=== PATIENT | female | born 1990 | race Caucasian/White ===

== ENCOUNTER 2017-01-19 17:29 | Emergency (ER) | payer MEDICAID ==
[~2017-01-19 17:29] MED LIST: ACHD5005 PO; AMOX875T2 PO; CLC500CT PO; CYCL10TA9 PO; DCS100C PO; DICL50TA4 PO; FRS325T PO; IBP600T1 PO; LABE300T PO; LEVO500T69 PO; NAPR-243 PO; NAPR250T PO; NF-SKEL800 PO; PHEN-639 PO; PRED20TA PO; PREN1TAB14 PO; SULF1TAB35 PO; TRAM50TA2 PO
--- OUTSIDE RECORDS SUMMARY | 2017-01-20 19:35 | XMS REPORT ---
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 Name Role Phone ROGERIO MALHOTRA CP Unavailable Allergies No Known Allergies Problems Problem Type Condition ICD-9 Code Onset Dates Condition Status Assessment Dental examination V72.2 Active Problem Insufficient care V23.7 Active Problem Screening for iron deficiency anemia V78.0 Active Problem Previous delivery, unspecified as to episode of care or not applicable 654.20 Active Problem Infections of genitourinary tract in , unspecified as to episode of care 646.60 Active Problem Lumbago 724.2 Active Problem Screening for diabetes mellitus V77.1 Active Problem DTAP TEST V06.1 Active Medications No Known Medications Procedures Procedure Coding System Code Date INTRAORL-PERIAPICAL 1 FILM 73776 CPT-4 D0220 January 30, 2015 PANORAMIC FILM SEE ALSO CODE 52935 CPT-4 D0330 January 30, 2015 LTD ORAL EVALUATION - PROBLEM FOCUS CPT-4 D0140 January 30, 2015 Results No Known Results Summary Purpose eClinicalWorks Submission
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
== END 2017-01-19 18:20 | disposition left against medical advice (07) ==
LOC: EDUNIT# 17:29 → ER 17:31
DX: O99.89 Other specified diseases and conditions complicating pregnancy, childbirth and the puerperium (principal); R51 Headache; Z53.21 Procedure and treatment not carried out due to patient leaving prior to being seen by health care provider; Z3A.00 Weeks of gestation of pregnancy not specified

== ENCOUNTER → 2017-01-31 | Outpatient (CLI) | payer MEDICAID ==
--- NOTE | 2017-01-31 13:46 | Diagnostic Imaging Report ---
INDICATION: Evaluate size and dates. TECHNIQUE: Multiple real-time grayscale images were obtained over the gravid uterus. COMPARISON: None. FINDINGS: Single live intrauterine at 18 weeks 4 days by today's sonographic measurements. EDC is 06/30/2017. presentation is cephalic. Placenta is located posteriorly with no placenta previa. heart rate measures 156 beats per minute. Good visualization of the kidneys, bladder, stomach, brain, four-chamber heart, three-vessel cord and insertion, extremities, and spine. Biometrical measurements are as follows: Biparietal 4.1 cm, age 18 weeks 4 days. Head circumference 15.2 cm, age 18 weeks 2 days. Abdominal circumference 13.3 cm, age 18 weeks 6 days. Femur length 2.7 cm, age 18 weeks 3 days. Sonographic estimate age: 18 weeks 4 days. Sonographic estimated date of delivery: 06/30/17. Estimated Weight: 244 gm (+/- 36 gm). LMP percentile: 2%. heart rate: 156 beats per minute. number: 1 of 1. IMPRESSION: Single live intrauterine at 18 weeks 4 days by sonographic measurements. Normal anatomical survey. Dictated by: Dictated on workstation # [id number]
== END ==
LOC: RAD 12:22
PROVIDERS: ATTEND Family Medicine
DX: Z36 Encounter for antenatal screening of mother (principal); Z3A.18 18 weeks gestation of pregnancy
CPT/HCPCS: 76805

== ENCOUNTER → 2017-05-09 | Outpatient (CLI) | payer MEDICAID ==
[2017-05-09 12:20] LABS: MEAN PLATELET VOLUME 9.6 FL (7.4-10.4); RED BLOOD COUNT 3.36 10^6/uL (4.35-5.85); WHITE BLOOD COUNT 12.2 10^3/uL (4.3-11.0)
[2017-05-09 12:37] LABS: ALANINE AMINOTRANSFERASE < 6 U/L (0-55); ALBUMIN 3.4 GM/DL (3.2-4.5); ANION GAP 10 MMOL/L (5-14); ASPARTATE AMINO TRANSFERASE 10 U/L (5-34); BILIRUBIN,TOTAL 0.2 MG/DL (0.1-1.0); BLOOD UREA NITROGEN 5 MG/DL (7-18); BUN/CREATININE RATIO 8; CALCIUM 9.7 MG/DL (8.5-10.1); CARBON DIOXIDE 19 MMOL/L (21-32); CHLORIDE 109 MMOL/L (98-107); CREATININE SERUM 0.66 MG/DL (0.60-1.30); GFR ESTIMATED > 60; GLUCOSE 95 MG/DL (70-105); LACTATE DEHYDROGENASE 145 U/L (125-220); POTASSIUM 3.3 MMOL/L (3.6-5.0); SODIUM 138 MMOL/L (135-145); TOTAL PROTEIN 6.1 GM/DL (6.4-8.2); URIC ACID 4.5 MG/DL (2.6-7.2)
[2017-05-09 13:34] LABS: PROTEIN/CREATININE RATIO 0.18
== END ==
LOC: LAB 12:02
PROVIDERS: ATTEND Family Medicine
DX: O13.3 Gestational [pregnancy-induced] hypertension without significant proteinuria, third trimester (principal); Z3A.00 Weeks of gestation of pregnancy not specified
CPT/HCPCS: 36415; 80053; 82570; 83615; 84156; 84550; 85027

== ENCOUNTER 2017-06-10 10:00 | Inpatient (IN) | payer MEDICAID ==
[~2017-06-10] VITALS: Ht 167.6 cm; Wt 95.3 kg
[2017-06-10] MEDS ORDERED: RANI-515 PO (10:45)
[2017-06-10] MEDS ORDERED: METOCLOPRAMIDE INJ 10 MG/2 ML (REGLAN) IV ONE (11:15)
[2017-06-10] MEDS ORDERED: CITRIC ACID/SOB CIT (BICITRA) 30 ML UDC PO ONE (11:15)
[2017-06-10] MEDS ORDERED: FAMOTIDINE 20MG/2ML IV (PEPCID) IV ONE (11:15)
[2017-06-10] MEDS ORDERED: INFLUENZA TRIvalent 2017-2018 0.5 ML/45 MCG SYR IM ONE (11:30)
[2017-06-10 11:36] LABS: BASOPHILS % (AUTO) 0 % (0-10); EOSINOPHILS # (AUTO) 0.1 10^3/uL (0.0-0.3); EOSINOPHILS % (AUTO) 1 % (0-10); LYMPHOCYTES # (AUTO) 1.6 X 10^3 (1.0-4.0); LYMPHOCYTES % (AUTO) 16 % (12-44); MEAN CORPUSCULAR HEMOGLOBIN 27 PG (25-34); MEAN CORPUSCULAR HGB CONC 32 G/DL (32-36); MEAN CORPUSCULAR VOLUME 84 FL (80-99); MEAN PLATELET VOLUME 10.1 FL (7.4-10.4); MONOCYTES # (AUTO) 0.5 X 10^3 (0.0-1.0); MONOCYTES % (AUTO) 6 % (0-12); NEUTROPHILS # (AUTO) 7.5 X 10^3 (1.8-7.8); NEUTROPHILS % (AUTO) 76 % (42-75); PLATELET COUNT 216 10^3/uL (130-400); RED BLOOD COUNT 3.68 10^6/uL (4.35-5.85); RED CELL DISTRIBUTION WIDTH 15.8 % (10.0-14.5); WHITE BLOOD COUNT 9.8 10^3/uL (4.3-11.0)
[2017-06-10] MEDS: LACTATED RINGERS 1,000 ML IV PRN ×2 (11:37→12:23)
[2017-06-10] MEDS ORDERED: KETAMINE HCL 100 MG/ML 5 ML VIAL ONE (11:58)
[2017-06-10] MEDS ORDERED: fentaNYL INJECTION 100 MCG/2 ML AMP ONE (11:58)
--- NOTE | 2017-06-10 12:07 | History & Physical-OB ---
OB - Chief Complaint & HPI Date/Time Date of Admission: Date of Admission: Jun 10, 2017 at 11:07 am Time Seen by Provider: 12:04 Chief Complaint/History OB-Reason for Admission/Chief: Section Hx : 5 Hx Para: 3 Expected Date of Delivery: Jun 30, 2017 Gestational Age in Weeks: 37 Gestational Age in Days: 1 Indication for : desires repeat Admission Nurse Assessment Rev: Yes History of Labs A pos Anitbody neg RI RPR NR HBsAg NR HIV NR GC neg GBS unknown Allergies and Home Medications Allergies Coded Allergies: No Known Drug Allergies (Unverified , 04/29/13) Home Medications Ranitidine HCl 150 Mg Tablet, 150 MG PO DAILY, (Reported) OB - History Hx of Present Care: Yes Ultrasounds: Normal mid trimester US Obstetrical Complications: Gestational Hypertension Medical Complications: None Obstetrical History Hx : 5 Hx Para: 3 Hx Termination: No Hx Total # of Abortions (Spona: 1 Hx Multiple Gestation: No Hx Stillbirth: No Hx Complication: No Hx Induced Hypertens: No Hx Maternal Gestational Diabet: No Delivery History Hx Dystocia: No Hx Large For Gestational Age I: No Hx Small for Gestational Age I: No Hx Section: No Hx Vaginal Delivery Post C-Sec: No Hx Blood Disorders: No Adverse Rxn to Tranfusion: No Patient Past Medical History n/a Social History/Family History HIV/AIDS: No Recent Infectious Disease Expo: No Sexually Transmitted Disease: No Alcohol Use: Denies Use Recreational Drug Use: No Immunizations Hepatitis A: No Hepatitis B: No Tetanus Booster (TDap): Unknown Date of Influenza Vaccine: May 28, 2015 OB - Admission Exam Physical Exam HEENT: NCAT Heart: Rhythm Normal Lungs: Clear Abdomen: Gravid Extremities: Normal Reflexes: Normal Membranes: Ruptured Heart Rate: 130's Accelerations: Accelerations Present Decelerations: No Decelerations Short Term Variability: Present Broom Maker Variability: Average (6-25) Contractions on Admission: 6-10 Minutes Apart Intensity: Mild Labs Laboratory Tests Test 06/10/17 11:25 Range/Units White Blood Count 9.8 4.3-11.0 10^3/uL Red Blood Count 3.68 L 4.35-5.85 10^6/uL Hemoglobin 10.0 L 11.5-16.0 G/DL Hematocrit 31 L 35-52 % Mean Corpuscular Volume 84 80-99 FL Mean Corpuscular Hemoglobin 27 25-34 PG Mean Corpuscular Hemoglobin Concent 32 32-36 G/DL Red Cell Distribution Width 15.8 H 10.0-14.5 % Platelet Count 216 130-400 10^3/uL Mean Platelet Volume 10.1 7.4-10.4 FL Neutrophils (%) (Auto) 76 H 42-75 % Lymphocytes (%) (Auto) 16 12-44 % Monocytes (%) (Auto) 6 0-12 % Eosinophils (%) (Auto) 1 0-10 % Basophils (%) (Auto) 0 0-10 % Neutrophils # (Auto) 7.5 1.8-7.8 X 10^3 Lymphocytes # (Auto) 1.6 1.0-4.0 X 10^3 Monocytes # (Auto) 0.5 0.0-1.0 X 10^3 Eosinophils # (Auto) 0.1 0.0-0.3 10^3/uL Basophils # (Auto) 0.0 0.0-0.1 10^3/uL OB - Assessment/Plan/Diagnosis Assessment Assessment: section Plan Plan: Section Other Plan RLTCS with RRS Discharge Diagnosis Diagnosis: 27 G5 P 3 @ 37 weeks SROM GBS unknown GHASSAN DOAN DO Jun 10, 2017 12:07 pm
[2017-06-10] MEDS ORDERED: ceFAZolin 2 GM/50 ML NS 50 ML IV NR (12:15)
[2017-06-10] MEDS ORDERED: OXYTOCIN/NORMAL SALINE 500 ML IV ONE ×2 (12:27→13:31)
[2017-06-10] MEDS ORDERED: ONDANSETRON 4 MG/2 ML (SDV) Z0FRAN ONE (12:27)
[2017-06-10] MEDS ORDERED: KETOROLAC 30 MG/ML VIAL ONE (12:27)
--- OUTSIDE RECORDS SUMMARY | 2017-06-10 12:41 | XMS REPORT ---
Author Author YUMIKO CRAFT Organization [facility] Address [address] [place] [address] Care Team Providers Care Patient Liaison Name Role Phone YUMIKO CRAFT Unavailable PROBLEMS Unknown Problems ALLERGIES No Known Allergies SOCIAL HISTORY Never Assessed PLAN OF CARE Activity Details Follow Up prn Reason: VITAL SIGNS Height 66 in 2016-08-30 Weight 186.2 lbs 2016-08-30 Temperature 98.0 degrees Fahrenheit 2016-08-30 Heart Rate 96 bpm 2016-08-30 Respiratory Rate 22 2016-08-30 BMI 30.05 kg/m2 2016-08-30 Blood pressure systolic 98 mmHg 2016-08-30 Blood pressure diastolic 72 mmHg 2016-08-30 MEDICATIONS Medication Instructions Dosage Frequency Start Date End Date Duration Status Augmentin 875-125 MG Orally every 12 hrs 1 tablet 12h Aug,Aug 10 day(s) Active RESULTS No Results PROCEDURES Procedure Date Ordered Result Body Site DEPO MEDROL 80 MG/ML Aug 30, 2016 THER/PROPH/DIAG INJ, SC/IM Aug 30, 2016 DEXAMETHASONE 4MG/ML (PER 1 MG) Aug 30, 2016 IMMUNIZATIONS Vaccine Route Administration Date Status DEXAMETHASONE 4MG/ML (PER 1 MG) IM Intramuscular Aug 30, 2016 Administered DEPO MEDROL 80 MG/ML IM Intramuscular Aug 30, 2016 Administered MEDICAL (GENERAL) HISTORY Type Description Date Surgical History section x2 Hospitalization History Childbirth x3
[2017-06-10] MEDS ORDERED: CATHETER FLUSH 10 ML SYR IV PRN (13:00)
[2017-06-10] MEDS ORDERED: OXYTOCIN/NORMAL SALINE 500 ML IV SCH (13:44)
[2017-06-10] MEDS ORDERED: MEASLES,MUMPS,RUBELLA 1 EA INJ SC SCH (13:45)
[2017-06-10] MEDS ORDERED: TETANUS,DIPTH,PERTUSS P/F (BOOSTRIX) 0.5 ML VIAL IM SCH (13:45)
[2017-06-10] MEDS ORDERED: HYDROmorphone (DILAUDID) 2 MG/ML VIAL IVP PRN (13:45)
[2017-06-10] MEDS ORDERED: ONDANSETRON 4 MG/2 ML (SDV) Z0FRAN IVP PRN (13:45)
[2017-06-10] MEDS ORDERED: IBUPROFEN 600 MG (MOTRIN) TAB PO SCH (13:45)
[2017-06-10 15:15] VITALS: BP 131/87
[2017-06-10 17:00] VITALS: BP 121/75
[2017-06-10] MEDS: HYDROcodone/APAP 5 MG/325 MG (LORTAB) TAB PO PRN ×2 (18:15→23:20)
[2017-06-10 20:29] VITALS: BP 114/73
[2017-06-10] MEDS: KETOROLAC 30 MG/ML VIAL IVP SCH (20:29)
[2017-06-10 21:21] LABS: BASOPHILS % (AUTO) 0 % (0-10); EOSINOPHILS % (AUTO) 0 % (0-10); LYMPHOCYTES # (AUTO) 1.2 X 10^3 (1.0-4.0); LYMPHOCYTES % (AUTO) 9 % (12-44); MEAN CORPUSCULAR HEMOGLOBIN 27 PG (25-34); MEAN CORPUSCULAR HGB CONC 32 G/DL (32-36); MEAN CORPUSCULAR VOLUME 85 FL (80-99); MEAN PLATELET VOLUME 10.1 FL (7.4-10.4); MONOCYTES # (AUTO) 0.5 X 10^3 (0.0-1.0); MONOCYTES % (AUTO) 4 % (0-12); NEUTROPHILS # (AUTO) 12.2 X 10^3 (1.8-7.8); NEUTROPHILS % (AUTO) 87 % (42-75); PLATELET COUNT 201 10^3/uL (130-400); RED BLOOD COUNT 2.94 10^6/uL (4.35-5.85); RED CELL DISTRIBUTION WIDTH 15.6 % (10.0-14.5)
[2017-06-10 22:23] VITALS: BP 106/62
[2017-06-10] MEDS: DOCUSATE SODIUM 100 MG (COLACE) CAP PO SCH (23:19)
[2017-06-10 23:58] VITALS: BP 82/44
--- NOTE | 2017-06-10 23:58 | OPERATIVE REPORT ---
DATE OF SERVICE: PREOPERATIVE DIAGNOSES: 1. A 27-year-old female at 37 weeks gestation. 2. Spontaneous rupture of membranes. 3. Previous section. 4. Family history of ovarian cancer. POSTOPERATIVE DIAGNOSES: 1. A 27-year-old female at 37 weeks gestation. 2. Spontaneous rupture of membranes. 3. Previous section. 4. Family history of ovarian cancer. PROCEDURE: Repeat low transverse section with risk reducing salpingectomy. SURGEON: Joe Alejandra DO OVEN ATTENDANT: Suze Dick MS-3 ANESTHESIA: Spinal. EBL: 800 mL. URINE OUTPUT: 145 mL clear at the end of the procedure. FLUIDS: 2040 mL lactated Ringer solution. FINDINGS: This is a live male infant weighing 7 pounds 1 ounce, Apgars of 8 and 9. Grossly normal appearing uterus, bilateral fallopian tubes and ovaries. SPECIMEN SENT: Placenta. INDICATIONS FOR PROCEDURE: This is a 27-year-old female who was previously consulted in my office to proceed with a repeat . I had discussed with the patient previously in her April appointment about proceeding with risk reducing salpingectomy, both due to her family history of ovarian cancer as well as due to her requesting for permanent sterilization. The procedure itself was discussed with the patient in detail including risk of bleeding, infection, damage to any surrounding structures including but not limited to bowel, bladder, ureter kidneys, possible removal of ovary, risk from anesthesia, blood transfusion and even . After everything was discussed with the patient in detail, consent was obtained in the preoperative area. OPERATIVE REPORT IN DETAIL: Once in the operating room, spinal analgesic was found to be adequate, placed in the supine position with leftward tilt, prepped and draped in normal sterile fashion. A Pfannenstiel skin incision was made through the previously existing scar using the knife, after anesthesia was tested and timeout was performed. This incision was carried down to the underlying fascia using Bovie cautery. Fascial incision was extended laterally using Bovie cautery. Superior aspect of the fascial incision was then grasped with Dave clamps, tented upward and dissected off the underlying rectus muscles. The inferior aspect of the fascial incision was then grasped with Dave clamps, tented upward and dissected off the underlying rectus muscles. Rectus muscles were dissected down the midline using Dorantes scissors, which exposed the peritoneum which was entered bluntly and this incision extended using blunt traction. The Avni ring retractor was placed within the peritoneal incision, which offers excellent lateral side wall retraction. I then identified the lower uterine segment, which was found to be thinned out and make a low-transverse incision to the vesicouterine peritoneum using a knife and bluntly dissected bladder flap off of the lower uterine segment. I then proceeded with my myotomy until membranes were visualized, at which point, I extended the uterine incision laterally and superiorly using bandage scissors. Amniotomy through the incision was then noted and clear fluid was noted at this time. The was found in the vertex presentation. With gentle fundal pressure, the 's head was delivered through the incision where it was bulb suctioned both nares and oropharynx. There was a nuchal cord reduced x1. Anterior and posterior shoulders were delivered. The infant was now then brought out to the operative field, where the cord was doubly clamped and cut, and was handed off to waiting pediatric nurses in attendance. Cord blood was collected, 3-vessel cord with intact placenta delivered spontaneously thereafter. IV Pitocin was initiated to facilitate uterine contraction and fundus becomes firmer with bimanual massage. The uterus was then exteriorized and cleared of all endometrial clots and debris. I then proceeded to close the uterine incision using 0 Vicryl suture in a running locking fashion. A second layer of imbricating 0 Monocryl was placed. Excellent hemostasis was noted. After doing so, I then proceeded with removing the fallopian tubes and create a window in the mesosalpinx, and take this distally and laterally. During this dissection process, I run into several large varicosities in the mesosalpinx, which have to be suture ligated using both 3-0 and 2-0 Vicryl suture. The tube was ligated using suture as well prior to it being ligated using cautery, after which this was performed on both sides and both sides appeared to be hemostatic. I placed the uterus back within the pelvis and copiously irrigated the pelvis using normal saline. There was no active bleeding noted from any dissection planes. I then placed Surgicel due to some slight oozing in the lower uterine segment over my planes of dissection to prevent postoperative bleeding as well. The peritoneum and rectus muscles were then reapproximated using 3-0 Vicryl suture in interrupted fashion. The fascia was reapproximated using 0 Vicryl suture in running fashion. The subcutaneous tissue was reapproximated using 3-0 plain in interrupted subcutaneous stitch and the skin reapproximated using 4-0 Monocryl running subcuticular. Dermabond was applied to the incision and sterile dressing with adhesive wide tape, and pressure was applied to this as well using abdominal binder. The patient tolerated the procedure well and sent to recovery area in stable condition. Lap and sponge counts correct at the end of the procedure. Instrument counts correct as well. A 2 grams of Ancef was given preoperatively for infection prophylaxis. Job ID: [id number] DocumentID: [id number] Dictated Date: 06/10/2017 13:52:34 Forgeman Helper Date: 06/10/2017 23:29:35 Dictated By: JOE ALEJANDRA DO
[2017-06-11] VITALS (21 sets, daily range): BP systolic 71–144; BP diastolic 46–89
[2017-06-11] MEDS ORDERED: NS IV 500 ML 500 ML IV SCH (00:05)
[2017-06-11] MEDS ORDERED: diphenhydrAMINE 50 MG/ML INJ (BENADRYL) IVP PRN (00:15)
[2017-06-11] MEDS: CATHETER FLUSH 10 ML SYR IV SCH ×3 (00:26→06:22)
[2017-06-11] MEDS: KETOROLAC 30 MG/ML VIAL IVP SCH ×2 (03:20→09:39)
[2017-06-11] MEDS: SIMETHICONE 80 MG (MYLICON) CHEW PO PRN ×2 (06:25→15:50)
[2017-06-11] MEDS: HYDROcodone/APAP 5 MG/325 MG (LORTAB) TAB PO PRN ×3 (06:41→21:00)
[2017-06-11 08:09] LABS: BASOPHILS % (AUTO) 0 % (0-10); EOSINOPHILS # (AUTO) 0.1 10^3/uL (0.0-0.3); EOSINOPHILS % (AUTO) 0 % (0-10); LYMPHOCYTES # (AUTO) 2.4 X 10^3 (1.0-4.0); LYMPHOCYTES % (AUTO) 17 % (12-44); MEAN CORPUSCULAR HEMOGLOBIN 28 PG (25-34); MEAN CORPUSCULAR HGB CONC 33 G/DL (32-36); MEAN CORPUSCULAR VOLUME 84 FL (80-99); MEAN PLATELET VOLUME 9.6 FL (7.4-10.4); MONOCYTES % (AUTO) 7 % (0-12); NEUTROPHILS # (AUTO) 10.2 X 10^3 (1.8-7.8); NEUTROPHILS % (AUTO) 75 % (42-75); PLATELET COUNT 168 10^3/uL (130-400); RED BLOOD COUNT 3.07 10^6/uL (4.35-5.85); RED CELL DISTRIBUTION WIDTH 15.3 % (10.0-14.5); WHITE BLOOD COUNT 13.6 10^3/uL (4.3-11.0)
--- NOTE | 2017-06-11 08:43 | Progress Note-Standard ---
Standard Progress Note Progress Notes/Assess & Plan Date Seen by Provider: Jun 11, 2017 Time Seen by Provider: 08:30 Progress/Assessment & Plan Patient doing well POD RLTCS with b/l salpingectomy. Patient was diaphoretic and weak last night and PO hgb noted to be 7, so due to symptomatic anemia 2 uPRBC ordered and given last night. This morning the patient reports feeling well but has only complaint of ruq pain that radiates to her right shoulder. Lochia light, pain very well controlled, tolerating regular diet. Vital Sign - Last 24 Hours 06/10/17 06/10/17 06/10/17 06/10/17 15:15 16:17 17:00 20:29 Temp 97.9 98.3 97.5 Pulse 82 69 68 Resp 18 18 18 B/P (MAP) 131/87 121/75 114/73 Pulse Ox 99 99 98 O2 Delivery Room Air Room Air Room Air Room Air 06/10/17 06/10/17 06/11/17 06/11/17 22:23 23:58 00:00 00:15 Temp 97.1 97.4 Pulse 65 90 72 68 Resp 18 18 18 18 B/P (MAP) 106/62 82/44 71/46 89/57 Pulse Ox 98 98 99 99 O2 Delivery Room Air Room Air Room Air Room Air 06/11/17 06/11/17 06/11/17 06/11/17 00:45 01:10 01:15 01:30 Temp 97.5 97.5 96.9 Pulse 77 87 94 77 Resp 18 18 18 18 B/P (MAP) 118/76 117/72 128/80 110/74 Pulse Ox 98 97 96 99 O2 Delivery Room Air Room Air Room Air Room Air 06/11/17 06/11/17 06/11/17 06/11/17 01:45 02:00 02:15 02:45 Temp 97.0 Pulse 88 88 82 83 Resp 18 18 18 18 B/P (MAP) 118/75 116/79 121/82 126/84 Pulse Ox 97 97 99 97 O2 Delivery Room Air Room Air Room Air Room Air 06/11/17 06/11/17 06/11/17 06/11/17 03:00 03:25 03:30 03:40 Temp 97.0 97.1 96.9 Pulse 78 84 78 74 Resp 18 18 18 18 B/P (MAP) 128/87 133/89 133/88 134/79 Pulse Ox 98 97 97 97 O2 Delivery Room Air Room Air Room Air Room Air 06/11/17 06/11/17 06/11/17 05:15 05:40 06:26 Temp 97.3 97.0 97.9 Pulse 78 80 88 Resp 18 18 18 B/P (MAP) 108/85 116/71 133/82 Pulse Ox 100 99 98 O2 Delivery Room Air Room Air Room Air Incision: c/d/i Laboratory Tests Test 06/10/17 11:25 06/10/17 21:05 06/11/17 07:54 Range/Units White Blood Count 9.8 14.0 H 13.6 H 4.3-11.0 10^3/uL Red Blood Count 3.68 L 2.94 L 3.07 L 4.35-5.85 10^6/uL Hemoglobin 10.0 L 7.9 #L 8.6 L 11.5-16.0 G/DL Hematocrit 31 L 25 L 26 L 35-52 % Mean Corpuscular Volume 84 85 84 80-99 FL Mean Corpuscular Hemoglobin 27 27 28 25-34 PG Mean Corpuscular Hemoglobin Concent 32 32 33 32-36 G/DL Red Cell Distribution Width 15.8 H 15.6 H 15.3 H 10.0-14.5 % Platelet Count 216 201 168 130-400 10^3/uL Mean Platelet Volume 10.1 10.1 9.6 7.4-10.4 FL Neutrophils (%) (Auto) 76 H 87 H 75 42-75 % Lymphocytes (%) (Auto) 16 9 L 17 12-44 % Monocytes (%) (Auto) 6 4 7 0-12 % Eosinophils (%) (Auto) 1 0 0 0-10 % Basophils (%) (Auto) 0 0 0 0-10 % Neutrophils # (Auto) 7.5 12.2 H 10.2 H 1.8-7.8 X 10^3 Lymphocytes # (Auto) 1.6 1.2 2.4 1.0-4.0 X 10^3 Monocytes # (Auto) 0.5 0.5 1.0 0.0-1.0 X 10^3 Eosinophils # (Auto) 0.1 0.0 0.1 0.0-0.3 10^3/uL Basophils # (Auto) 0.0 0.0 0.0 0.0-0.1 10^3/uL Diagnosis POD 1 RLTCS with b/l RRS Acute blood loss anemia s/p transfusion 2 u PRBC P: Continue PO care replace iron Anticipate dc tomorrow morning if continues to be stable GHASSAN ALEJANDRA DO Jun 11, 2017 8:43 am
[2017-06-11] MEDS ORDERED: FERROUS SULF 325 MG (IRON) TAB PO ONE (09:34)
[2017-06-11] MEDS: DOCUSATE SODIUM 100 MG (COLACE) CAP PO SCH ×2 (09:39→21:00)
[2017-06-11] MEDS: FERROUS SULF 325 MG (IRON) TAB PO SCH (09:42)
--- NOTE | 2017-06-11 15:32 | Anesthesia-Regional Post-Op ---
Regional Patient Condition Mental Status: Alert, Oriented x3 Circulation: Same as Pre-Op Headache: Absent Sensation: Full Recovery Motor Block: Absent Post Op Complications Complications None Follow Up Care/Instructions Patient Instructions None needed. Anesthesia/Patient Condition Patient is doing well, no complaints, stable vital signs, no apparent adverse anesthesia problems. No complications reported per nursing. NAUN MIRELES CRNA Jun 11, 2017 15:32
[2017-06-11] MEDS: IBUPROFEN 600 MG (MOTRIN) TAB PO SCH ×2 (15:46→21:00)
--- NOTE | 2017-06-11 21:40 | Discharge Inst-Women's Service ---
Discharge Inst-Women's Serv Depart Medication/Instructions New, Converted or Re-Newed RX: RX on Chart Consults/Follow Up Additional Follow Up: Yes Orders/Referrals Dr. Akhtar in 7-[address] Uriarte in 6 weeks Activity Activity: Activity as Tolerated Driving Instructions: No Driving for 1 Week NO SMOKING: NO SMOKING Nothing Inside Vagina: No Douching, No [place], No Tampons Diet Discharge Diet: No Restrictions Symptoms to Report to : Bleeding Excessive, Pain Increased, Fever Over 101 Degrees F, Vaginal Bleeding Increase, Questions/Concerns For Any Problems or Questions: Contact Your Physician Skin/Wound Care Infection Signs and Symptoms: Increased Redness, Foul Odor of Wound, Increased Drainage, Skin Itchy or Has a Rash, Increased Swelling, Temperature Above 101 F Operative Area Clean and Dry: Keep Incision Clean/Dry Stitches/[place]/Dermabond: Dermabond, Care of Stitches Bathing Instructions: GHASSAN Schwarz DO Jun 11, 2017 21:40
[2017-06-11] MEDS ORDERED: HYDR-3812 PO (21:41)
[2017-06-11] MEDS ORDERED: DOCU100C37 PO (21:41)
[2017-06-11] MEDS ORDERED: SIME80TA16 PO (21:41)
[2017-06-11] MEDS ORDERED: IBUP-1773 PO (21:41)
[2017-06-11] MEDS ORDERED: FERR-74 PO (21:41)
[2017-06-12 02:07] VITALS: BP 147/94
[2017-06-12] MEDS: IBUPROFEN 600 MG (MOTRIN) TAB PO SCH ×2 (02:07→08:36)
[2017-06-12] MEDS: HYDROcodone/APAP 5 MG/325 MG (LORTAB) TAB PO PRN (02:07)
[2017-06-12 07:14] LABS: BASOPHILS % (AUTO) 0 % (0-10); EOSINOPHILS # (AUTO) 0.2 10^3/uL (0.0-0.3); EOSINOPHILS % (AUTO) 2 % (0-10); LYMPHOCYTES # (AUTO) 1.8 X 10^3 (1.0-4.0); LYMPHOCYTES % (AUTO) 17 % (12-44); MEAN CORPUSCULAR HEMOGLOBIN 28 PG (25-34); MEAN CORPUSCULAR HGB CONC 32 G/DL (32-36); MEAN CORPUSCULAR VOLUME 86 FL (80-99); MEAN PLATELET VOLUME 9.7 FL (7.4-10.4); MONOCYTES # (AUTO) 0.8 X 10^3 (0.0-1.0); MONOCYTES % (AUTO) 7 % (0-12); NEUTROPHILS # (AUTO) 7.7 X 10^3 (1.8-7.8); NEUTROPHILS % (AUTO) 73 % (42-75); PLATELET COUNT 132 10^3/uL (130-400); RED BLOOD COUNT 2.57 10^6/uL (4.35-5.85); RED CELL DISTRIBUTION WIDTH 15.5 % (10.0-14.5); WHITE BLOOD COUNT 10.5 10^3/uL (4.3-11.0)
[2017-06-12 08:00] VITALS: BP 130/90
[2017-06-12] MEDS: FERROUS SULF 325 MG (IRON) TAB PO SCH (08:36)
[2017-06-12] MEDS: DOCUSATE SODIUM 100 MG (COLACE) CAP PO SCH (08:36)
--- NOTE | 2017-06-12 11:10 | Progress Note-Standard ---
Standard Progress Note Progress Notes/Assess & Plan Date Seen by Provider: Jun 12, 2017 Time Seen by Provider: 08:50 Progress/Assessment & Plan Patient doing well POD 2 RLTCS with b/l salpingectomy. She reports doing better today and awaiting discharge. Pain in RUQ has gotten better. Lochia light. Denies lightheadeness dizzyness. Tolerating regular diet. Vital Sign - Last 24 Hours 06/11/17 06/11/17 06/11/17 06/12/17 13:00 16:03 21:00 02:07 Temp 98.0 98.3 98.4 97.8 Pulse 95 108 98 99 Resp 18 20 18 20 B/P (MAP) 118/78 144/87 128/84 147/94 Pulse Ox 98 97 97 99 O2 Delivery Room Air Room Air Room Air Room Air 06/12/17 08:00 Temp 98.0 Pulse 118 Resp 18 B/P (MAP) 130/90 Incision: c/d/i Laboratory Tests Test 06/12/17 07:04 Range/Units White Blood Count 10.5 4.3-11.0 10^3/uL Red Blood Count 2.57 L 4.35-5.85 10^6/uL Hemoglobin 7.1 L 11.5-16.0 G/DL Hematocrit 22 L 35-52 % Mean Corpuscular Volume 86 80-99 FL Mean Corpuscular Hemoglobin 28 25-34 PG Mean Corpuscular Hemoglobin Concent 32 32-36 G/DL Red Cell Distribution Width 15.5 H 10.0-14.5 % Platelet Count 132 130-400 10^3/uL Mean Platelet Volume 9.7 7.4-10.4 FL Neutrophils (%) (Auto) 73 42-75 % Lymphocytes (%) (Auto) 17 12-44 % Monocytes (%) (Auto) 7 0-12 % Eosinophils (%) (Auto) 2 0-10 % Basophils (%) (Auto) 0 0-10 % Neutrophils # (Auto) 7.7 1.8-7.8 X 10^3 Lymphocytes # (Auto) 1.8 1.0-4.0 X 10^3 Monocytes # (Auto) 0.8 0.0-1.0 X 10^3 Eosinophils # (Auto) 0.2 0.0-0.3 10^3/uL Basophils # (Auto) 0.0 0.0-0.1 10^3/uL Diagnosis POD 2 RLTCS with b/l RRS Acute blood loss anemia s/p transfusion 2 u PRBC P: Continue PO care replace iron Anticipate dc today PO/PP precautions and anemia precautions reviewed GHASSAN ALEJANDRA DO Jun 12, 2017 11:10 am
[2017-06-12 12:30] VITALS: BP 140/94
== END 2017-06-12 13:20 | disposition home or self-care (01) | DRG 765 ==
LOC: WSo 10:00 → LDRP 10:00 → WSo 11:06 → LDRP 11:07
PROVIDERS: ADMIT Family Medicine; ATTEND Family Medicine
PROC: 0UT70ZZ Resection of Bilateral Fallopian Tubes, Open Approach (ICD-10-PCS; 2017-06-10)
PROC: 10D00Z1 Extraction of Products of Conception, Low, Open Approach (ICD-10-PCS; principal; 2017-06-10 12:23)
DX: O34.211 Maternal care for low transverse scar from previous cesarean delivery (principal); Z80.41 Family history of malignant neoplasm of ovary; O13.4 Gestational [pregnancy-induced] hypertension without significant proteinuria, complicating childbirth; O90.81 Anemia of the puerperium; D62 Acute posthemorrhagic anemia; Z3A.37 37 weeks gestation of pregnancy; Z37.0 Single live birth
CPT/HCPCS: 36415; 85025; 86850; 86900; 86901; 86920; 94664; 99212

== ENCOUNTER 2020-01-14 17:34 | Emergency (ER) | payer MEDICAID ==
[~2020-01-14] VITALS: Ht 165.1 cm; Wt 77.2 kg
[~2020-01-14 17:34] MED LIST changes: +DOCU100C37 PO; +FERR325T18 PO; +IBUP-1773 PO; +RANI-609 PO; +SIME80TA16 PO
[2020-01-14 17:49] VITALS: BP 130/88
--- NOTE | 2020-01-14 18:14 | ED Upper Extremity ---
General Chief Complaint: Upper Extremity Stated Complaint: L WRIST PAIN Source: patient Exam Limitations: no limitations History of Present Illness Date Seen by Provider: Jan 14, 2020 Time Seen by Provider: 18:13 Initial Comments To ER with left wrist pain after falling on outstretched arm. Onset: just prior to arrival Severity: moderate Pain/Injury Location: left wrist Method of Injury: fell Modifying Factors: Worse With Movement Allergies and Home Medications Allergies Coded Allergies: No Known Drug Allergies (Unverified , 04/29/13) Home Medications Docusate Sodium 100 Mg Capsule, 100 MG PO BID PRN for CONSTIPATION-1ST LINE Prescribed by: GHASSAN ALEJANDRA on 06/11/172140 Ferrous Sulfate 325 Mg Tablet, 325 MG PO BID Prescribed by: GHASSAN ALEJANDRA on 06/11/172140 Hydrocodone Bit/Acetaminophen 1 Each Tablet, 1-2 TAB PO Q4H PRN for PAIN- MODERATE Prescribed by: GHASSAN ALEJANDRA on 06/11/172140 Hydrocodone/Acetaminophen 1 Each Tablet, 1 EACH PO Q4-6HR PRN for PAIN-MODERATE Prescribed by: ARSH MASON on 01/14/201846 Ibuprofen 600 Mg Tablet, 600 MG PO Q6H Prescribed by: GHASSAN ALEJANDRA on 06/11/172140 Ranitidine HCl 150 Mg Tablet, 150 MG PO DAILY, (Reported) Simethicone 80 Mg Tab.chew, 80 MG PO PCHS PRN for GAS Prescribed by: GHASSAN ALEJANDRA on 06/11/172140 Patient Home Medication List Home Medication List Reviewed: Yes Review of Systems Constitutional: see HPI EENTM: see HPI Respiratory: no symptoms reported Cardiovascular: no symptoms reported Genitourinary: no symptoms reported Musculoskeletal: see HPI Skin: no symptoms reported Psychiatric/Neurological: No Symptoms Reported Past Ixgmpmr-Ggmyzm-Jengfy Hx Patient Social History Type Used: Cigarettes Recent Foreign Travel: No Contact w/Someone Who Travel: No Recent Hopitalizations: No Immunizations Up To Date Tetanus Booster (TDap): Unknown PED Vaccines UTD: Yes Date of Influenza Vaccine: May 28, 2015 Seasonal Allergies Seasonal Allergies: Yes Past Medical History Surgeries: Yes (RIGHT ARM SX) Section Respiratory: No Cardiac: No Neurological: No Reproductive Disorders: No Female Reproductive Disorders: Denies Sexually Transmitted Disease: No HIV/AIDS: No Genitourinary: No Gastrointestinal: Yes Gastroesophageal Reflux Musculoskeletal: Yes Scoliosis, Chronic Back Pain Endocrine: No HEENT: No Cancer: No Psychosocial: No Depression Integumentary: No Blood Disorders: No Adverse Reaction/Blood Tranf: No Family Medical History Hypercholesterolemia 19 FATHER Hypertension No Pertinent Family Hx Physical Exam Vital Signs Vital Signs - First Documented 01/14/20 17:49 Temp 37.0 Pulse 105 Resp 18 B/P (MAP) 130/88 (102) Pulse Ox 95 O2 Delivery Room Air Capillary Refill : Height, Weight, BMI Height: 5'6.00" Weight: 210lbs. 0.0oz. [id number]; 33.9 BMI Method:Stated General Appearance: WD/WN, no apparent distress HEENT: PERRL/EOMI, normal ENT inspection Neck: non-tender, full range of motion Respiratory: normal breath sounds, no respiratory distress, no accessory muscle use Gastrointestinal: normal bowel sounds, non tender Shoulder: normal inspection, non-tender Elbow/Forearm: normal inspection, non-tender Wrist: Yes deformity (swelling over the snuffbox), Yes limited ROM, Yes pain, Yes soft tissue tenderness Hand: normal inspection, non-tender Neurologic/Psychiatric: alert, normal mood/affect, oriented x 3 Skin: normal color, warm/dry Progress/Results/Core Measures Results/Orders My Orders Orders - ARSH MASON APRN Hydrocodone/Apap 5/325 Tablet (Lortab 5 (01/14/20 18:15) Wrist, Left, 3 Views Or More (01/14/20 18:11) Medications Given in ED Current Medications Medications Dose Ordered Sig/Miko Route Start Time Stop Time Status Last Admin Dose Admin Acetaminophen/ Hydrocodone Bitart 1 tab ONCE ONCE PO 01/14/20 18:15 01/14/20 18:16 DC 01/14/20 18:21 1 TAB Vital Signs/I&O 01/14/20 17:49 Temp 37.0 Pulse 105 Resp 18 B/P (MAP) 130/88 (102) Pulse Ox 95 O2 Delivery Room Air Departure Communication (Admissions) Placed in a sugar tong style splint using 3 inch Ortho-Glass and remains neurovascularly intact. NAME: MARIETODD MED REC#: [id number] PT STATUS: REG ER : 1990 PHYSICIAN: ARSH MASON APRN ADMIT DATE: 01/14/20/ER Draft Date of Exam:01/14/20 WRIST, LEFT, 3 VIEWS OR MORE EXAMINATION: Left wrist at 6:32 PM INDICATION: Fell Three views were obtained. There is a slightly impacted complex slightly displaced fracture of the distal radius. One of the fracture lines does interrupt the articular surface. There is also an avulsion fracture of the ulnar styloid. No other fracture or acute bony abnormality is noted. IMPRESSION: There is a complex slightly impacted fracture of the distal radius and avulsion fracture of the ulnar styloid. Dictated on workstation # [id number] Dict: 01/14/20 1846 Trans: 01/14/20 1858 [facility] [id number] Interpreted by: MOUSTAPHA EMERY MD Electronically signed by: Impression Primary Impression: Closed fracture distal radius and ulna Qualified Codes: S52.502A - Unspecified fracture of the lower end of left radius, initial encounter for closed fracture; S52.602A - Unspecified fracture of lower end of left ulna, initial encounter for closed fracture Disposition: HOME, SELF-CARE Condition: Stable Departure-Patient Inst. Decision time for Depature: 18:45 Referrals: NO,LOCAL PHYSICIAN (PCP) Primary Care Physician RANDELL TORRES MD, TERRY D MD ZAFUTA,GHASSAN Bone MD Patient Instructions: Radius Fracture Add. Discharge Instructions: 1. Keep the splint on clean and dry at all times until you follow up with orthop edics. Call an orthopedic surgeon of your choosing on Friday to make an appointment to be seen within the next 1-3 weeks. Pain medication as directed. All discharge instructions reviewed with patient and/or family. Voiced understanding. Scripts Hydrocodone/Acetaminophen (Lorcet 5-325 mg Tablet) 1 Each Tablet 1 EACH PO Q4-6HR PRN for PAIN-MODERATE MDD 10 for 7 Days, #20 TAB Prov: ARSH [facility]ON [facility] 01/14/20 ARSH [facility] Jan 14, 2020 18:14
[2020-01-14] MEDS ORDERED: HYDROcodone/APAP 5 MG/325 MG (LORTAB) TAB PO ONE (18:15)
[2020-01-14] MEDS ORDERED: HYDR-3870 PO (18:47)
--- NOTE | 2020-01-14 19:00 | Diagnostic Imaging Report ---
EXAMINATION: Left wrist at 6:32 PM INDICATION: Fell Three views were obtained. There is a slightly impacted complex slightly displaced fracture of the distal radius. One of the fracture lines does interrupt the articular surface of the distal radius. There is also an avulsion fracture of the ulnar styloid. No other fracture or acute bony abnormality is noted. IMPRESSION: There is a complex slightly impacted fracture of the distal radius and avulsion fracture of the ulnar styloid. Dictated by: Dictated on workstation # [id number]
[2020-01-14] MEDS ORDERED: RX-HYDROCODONE/APAP 5/325 MG #4 TAB PK PO PRN (19:15)
== END 2020-01-14 19:09 | disposition home or self-care (01) ==
LOC: EDUNIT# 17:34 → ER 17:36
DX: S52.502A Unspecified fracture of the lower end of left radius, initial encounter for closed fracture (principal); S52.602A Unspecified fracture of lower end of left ulna, initial encounter for closed fracture; K21.9 Gastro-esophageal reflux disease without esophagitis; Z82.49 Family history of ischemic heart disease and other diseases of the circulatory system; W19.XXXA Unspecified fall, initial encounter
CPT/HCPCS: 29125; 73110; 99284; A4565

== ENCOUNTER 2022-10-21 13:33 | Emergency (ER) | payer MEDICAID ==
[~2022-10-21] VITALS: Ht 167 cm; Wt 85.0 kg
[~2022-10-21 13:33] MED LIST changes: +HYDR-3870 PO; -SULF1TAB35 PO; +SULF1TAB38 PO
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
--- NOTE | 2022-10-21 14:53 | Diagnostic Imaging Report ---
PROCEDURE: CT maxillofacial without contrast. TECHNIQUE: Multiple contiguous axial images were obtained through the facial bones without the use of intravenous contrast. Auto Exposure Controls were utilized during the CT exam to meet ALARA standards for radiation dose reduction. INDICATION: Facial injury with bilateral periorbital ecchymoses There are comminuted bilateral nasal bone fractures with rightward angulation. Surrounding contusion and hematoma is also present however the globes are intact without evidence of retrobulbar hematoma. No other evidence of an acute fracture. No paranasal sinus air-fluid level is seen. Temporomandibular joints are intact. There is mild membrane thickening within the maxillary sinus floors. Numerous caries and dental periapical lucencies are present. IMPRESSION: Comminuted bilateral nasal bone fracture with rightward angulation of the major fracture fragments. No definite orbital injury is identified. There is extensive dental disease and dental consultation would be useful. Dictated by: Dictated on workstation # [id number]
[2022-10-21] MEDS ORDERED: AMOX1TAB12 PO (15:09)
[2022-10-21] MEDS ORDERED: ACHD5005 PO (15:09)
[2022-10-21 15:16] VITALS: BP 116/69
== END 2022-10-21 15:16 | disposition home or self-care (01) ==
LOC: EDUNIT# 13:33 → ER 13:35
DX: S02.2XXA Fracture of nasal bones, initial encounter for closed fracture (principal); F17.210 Nicotine dependence, cigarettes, uncomplicated; Z28.310 Unvaccinated for COVID-19; W22.8XXA Striking against or struck by other objects, initial encounter
CPT/HCPCS: 70486